=== PATIENT | female | born 1965 | race Hispanic/Latino ===

== ENCOUNTER → 2018-04-02 | Outpatient (CLI) | payer BC | LOC: MAMMO 11:30 | PROVIDERS: ATTEND Internal Medicine | DX: Z12.31 Encounter for screening mammogram for malignant neoplasm of breast (principal) | CPT/HCPCS: 77067 ==

== ENCOUNTER → 2018-04-22 | Outpatient (CLI) | payer BC ==
[2018-04-22 07:30] LABS: BASOPHILS % 0.4 % (0.0-1.0); EOSINOPHILS # (AUTO) 0.4 (0.0-0.4); EOSINOPHILS % 3.4 % (0.0-6.0); HEMATOCRIT 40.1 % (34.2-44.1); HEMOGLOBIN 13.6 g/dL (12.0-16.0); LYMPHOCYTES # (AUTO) 2.4 (1.0-3.2); LYMPHOCYTES % 22.7 % (18.0-39.1); MEAN CORPUSCULAR HEMOGLOBIN 30.2 pg (28-32); MEAN CORPUSCULAR HGB CONC 33.9 g/dL (31-35); MEAN CORPUSCULAR VOLUME 88.9 fL (81-99); MONOCYTES # (AUTO) 0.8 (0.2-0.8); MONOCYTES % 7.8 % (4.4-11.3); NEUTROPHILS # (AUTO) 6.8 (2.1-6.9); NEUTROPHILS % 65.4 % (38.7-80.0); PLATELET COUNT 326 x10e3/uL (140-360); RED BLOOD COUNT 4.51 x10e6/uL (3.6-5.1); RED CELL DISTRIBUTION WIDTH 12.4 % (11.7-14.4)
[2018-04-22 07:54] LABS: ALANINE AMINOTRANSFERASE 37 IU/L (0-55); ALBUMIN 3.7 g/dL (3.5-5.0); ALBUMIN/GLOBULIN RATIO 0.9 (0.8-2.0); ALKALINE PHOSPHATASE 108 IU/L (40-150); ANION GAP 12.8 mmol/L (8-16); BLOOD UREA NITROGEN 19 mg/dL (7-26); BUN/CREATININE RATIO 28 (6-25); CALCIUM 9.6 mg/dL (8.4-10.2); CARBON DIOXIDE 27 mmol/L (22-29); CHLORIDE 101 mmol/L (98-107); CHOL/HDL RATIO 4.2 (3.0-3.6); CHOLESTEROL 180 MD/DL (0-199); CREATININE, SERUM 0.67 mg/dL (0.57-1.11); EST GLOMERULAR FILTRATION RATE > 60 ML/MIN (60-); GLUCOSE 113 mg/dL (74-118); HDL CHOLESTEROL 43 MG/DL (40-60); LDL CHOLESTEROL 118 MG/DL (60-130); POTASSIUM 3.8 mmol/L (3.5-5.1); SODIUM 137 mmol/L (136-145); TRIGLYCERIDES 93 MG/DL (0-149)
[2018-04-22 08:15] LABS: FREE T4 (FREE THYROXINE) 1.08 ng/dL (0.9-1.8); THYROID STIMULATING HORMONE 0.804 uIU/mL (0.350-4.940)
== END ==
LOC: LAB 07:09
PROVIDERS: ATTEND Internal Medicine
DX: Z00.01 Encounter for general adult medical examination with abnormal findings (principal); Z13.1 Encounter for screening for diabetes mellitus; Z13.220 Encounter for screening for lipoid disorders; I10 Essential (primary) hypertension; M89.9 Disorder of bone, unspecified
CPT/HCPCS: 36415; 80053; 80061; 82652; 83036; 84439; 84443; 85025

== ENCOUNTER → 2018-09-24 | Outpatient (CLI) | payer BC ==
[2018-09-24 08:10] LABS: ALANINE AMINOTRANSFERASE 22 IU/L (0-55); ALBUMIN 3.5 g/dL (3.5-5.0); ALBUMIN/GLOBULIN RATIO 0.8 (0.8-2.0); ALKALINE PHOSPHATASE 104 IU/L (40-150); ANION GAP 12.7 mmol/L (8-16); BLOOD UREA NITROGEN 25 mg/dL (7-26); BUN/CREATININE RATIO 29 (6-25); CALCIUM 9.7 mg/dL (8.4-10.2); CARBON DIOXIDE 28 mmol/L (22-29); CHLORIDE 100 mmol/L (98-107); CHOL/HDL RATIO 3.5 (3.0-3.6); CHOLESTEROL 152 MD/DL (0-199); CREATININE, SERUM 0.86 mg/dL (0.57-1.11); EST GLOMERULAR FILTRATION RATE > 60 ML/MIN (60-); GLUCOSE 104 mg/dL (74-118); HDL CHOLESTEROL 43 MG/DL (40-60); LDL CHOLESTEROL 88 MG/DL (60-130); POTASSIUM 3.7 mmol/L (3.5-5.1); SODIUM 137 mmol/L (136-145); TRIGLYCERIDES 106 MG/DL (0-149)
== END ==
LOC: LAB 07:18
PROVIDERS: ATTEND Internal Medicine
DX: E11.9 Type 2 diabetes mellitus without complications (principal); I10 Essential (primary) hypertension; E66.01 Morbid (severe) obesity due to excess calories
CPT/HCPCS: 36415; 80053; 80061; 83036

== ENCOUNTER 2018-10-06 20:49 | Inpatient (IN) | payer BC ==
[~2018-10-06] VITALS: Ht 147.3 cm; Wt 87.1 kg
--- OUTSIDE RECORDS SUMMARY | 2018-10-06 20:51 | XMS REPORT ---
[facility] Address Unknown Phone Unavailable Care Team Providers Care Canopy Inspector Name Role Phone Amos HARRINGTON Unavailable Unavailable Problems This patient has no known problems. Allergies, Adverse Reactions, Alerts This patient has no known allergies or adverse reactions. Medications This patient has no known medications. Results Test Description Test Time Test Comments Text Results Atomic Results Result Comments MAMMOGRAPHY DIGITAL SCR BILAT 2018-04-02 12:34:00 [place] [address] Patient Name: YAMILETH ROA MR #: [id number] : 1965 Age/Sex: 53/F Req #: [id number] Adm Physician: Ordered by: KHANH HARRINGTON MD Report #: [id number] Location: MAMMO Room/Bed: Procedure: [id number] MG/MAMMOGRAPHY DIGITAL SCR BILAT Exam Date: 04/02/18 Exam Time: 1206 REPORT STATUS: Signed #[id number] - [id number] #BILATERAL DIGITAL SCREENING MAMMOGRAM WITH CAD: 04/02/2018 CLINICAL: Routine screening. Comparison is made to exams dated: 01/20/2015 mammogram, 10/19/2013 mammogram and 03/06/2012 mammogram - [facility]. Current study contains 4 films. There are scattered fibroglandular elements in both breasts. Current study was also evaluated with a Computer Aided Detection (CAD) system. There are benign vascular calcifications and calcifications in both breasts. There also are benign nodules in the right breast. Additionally there is a biopsy clip in the right breast. No significant masses, calcifications, or other findings are seen in either breast. There has been no significant interval change. IMPRESSION: BENIGN There is no mammographic evidence of malignancy. A 1 year screening mammogram is recommended. The patient will be notified by letter of the results. Amber thompson/saran:04/16/2018 15:49:37 Tipple Mechanic: Yadira VAZQUEZ)([place]), [facility] letter sent: Compared to Prior B9 Mammogram BI-RADS: 2 Benign Dictated By: AMBER FAGAN DO 1546 Transcribed By: SARAN on 04/16/18 [id number] COPY TO: KHANH HARRINGTON MD
[2018-10-06 21:49] LABS: BASOPHILS % 0.3 % (0.0-1.0); EOSINOPHILS # (AUTO) 0.1 (0.0-0.4); EOSINOPHILS % 0.6 % (0.0-6.0); HEMATOCRIT 34.1 % (34.2-44.1); HEMOGLOBIN 11.5 g/dL (12.0-16.0); LYMPHOCYTES # (AUTO) 0.8 (1.0-3.2); LYMPHOCYTES % 5.4 % (18.0-39.1); MEAN CORPUSCULAR HEMOGLOBIN 30.7 pg (28-32); MEAN CORPUSCULAR HGB CONC 33.7 g/dL (31-35); MEAN CORPUSCULAR VOLUME 90.9 fL (81-99); MONOCYTES # (AUTO) 0.8 (0.2-0.8); MONOCYTES % 5.5 % (4.4-11.3); NEUTROPHILS # (AUTO) 13.5 (2.1-6.9); NEUTROPHILS % 87.7 % (38.7-80.0); PLATELET COUNT 302 x10e3/uL (140-360); RED BLOOD COUNT 3.75 x10e6/uL (3.6-5.1); RED CELL DISTRIBUTION WIDTH 13.1 % (11.7-14.4)
[2018-10-06 21:52] LABS: CLARITY,URINE HAZY (CLEAR); COLOR,URINE YELLOW (YELLOW); KETONES,URINE TRACE (NEGATIVE); LEUKOCYTE ESTERASE ,URINE NEGATIVE (NEGATIVE); NITRITE,URINE NEGATIVE (NEGATIVE); PROTEIN,URINE DIPSTICK NEGATIVE (NEGATIVE)
[2018-10-06 21:53] LABS: AMORPHOUS SEDIMENT,URINE FEW (FEW); BACTERIA,URINE MODERATE /HPF; BILIRUBIN,URINE NEGATIVE (NEGATIVE); EPITHELIAL CELLS,URINE MODERATE /LPF; MUCUS,URINE FEW (RARE); RBC,URINE 0-5 /HPF (0-5); URINE UROBILINOGEN 0.2 mg/dL (0.2 - 1)
[2018-10-06 22:06] LABS: ALANINE AMINOTRANSFERASE 23 IU/L (0-55); ALBUMIN 3.6 g/dL (3.5-5.0); ALBUMIN/GLOBULIN RATIO 0.9 (0.8-2.0); ALKALINE PHOSPHATASE 96 IU/L (40-150); AMYLASE 47 U/L (25-125); ANION GAP 12.2 mmol/L (8-16); BLOOD UREA NITROGEN 18 mg/dL (7-26); BUN/CREATININE RATIO 23 (6-25); CALCIUM 9.6 mg/dL (8.4-10.2); CARBON DIOXIDE 26 mmol/L (22-29); CHLORIDE 100 mmol/L (98-107); CREATINE KINASE 83 IU/L (29-168); CREATININE, SERUM 0.79 mg/dL (0.57-1.11); EST GLOMERULAR FILTRATION RATE > 60 ML/MIN (60-); GLUCOSE 169 mg/dL (74-118); LIPASE 17 U/L (8-78); POTASSIUM 3.2 mmol/L (3.5-5.1); SODIUM 135 mmol/L (136-145)
--- NOTE | 2018-10-06 22:36 | Diagnostic Imaging Report ---
EXAMINATION: CHEST 2 VIEWS INDICATION: ^ABD PAIN ^[id number] ^2204 ^Y COMPARISON: None FINDINGS: PA and lateral views TUBES and LINES: None. LUNGS: Lungs are well inflated. There are calcified tracheobronchial tree. There is no evidence of pneumonia or pulmonary edema. PLEURA: No pleural effusion or pneumothorax. HEART AND MEDIASTINUM: The cardiomediastinal silhouette is unremarkable.. BONES AND SOFT TISSUES: Mild degenerative changes of the spine. No focal osseous lesions. Soft tissues are unremarkable. UPPER ABDOMEN: No free air under the diaphragm. IMPRESSION: No acute thoracic abnormality. Signed by: Dr. Selena Lujan MD on 10/06/2018 10:33 PM
--- NOTE | 2018-10-06 22:51 | Diagnostic Imaging Report ---
History:Syncope Comparison studies:None Technique: Axial images were obtained from the skull base to the vertex. Coronal and sagittal images reconstructed from the axial data. Intravenous contrast: None Dose modulation, iterative reconstruction, and/or weight based adjustment of the mA/kV was utilized to reduce the radiation dose to as low as reasonably achievable. Findings: Scalp/skull: No abnormalities. Extra-axial spaces: No masses. No fluid collections. Brain sulci: Mildly prominent. Ventricles: Mild compensatory dilatation. No hydrocephalus. Parenchyma: Scattered small hypodensities in the supratentorial white matter are small vessel ischemic changes. Cortical-based hypodensity at the left cuneus gyrus. No masses, hemorrhage, acute or chronic cortical vascular insults. Sellar/suprasellar region: No abnormalities. Craniocervical junction: Patent foramen magnum. No Chiari one malformation. Incidental findings: Atherosclerotic calcifications in the carotid siphons and vertebral arteries. Impression: No acute abnormalities. Chronic findings: 1. Mild generalized volume loss. 2. Mild supratentorial white matter small vessel ischemic changes. 3. Small focal gliosis at the left cuneus gyrus. Signed by: DR Gian Heath M.D. on 10/06/2018 10:48 PM
[2018-10-06] MEDS ORDERED: LISINOPRIL-HCT1 EACH PO (23:30)
[2018-10-06] MEDS ORDERED: LOSARTAN-HCTZ1 EACH PO (23:30)
[2018-10-06] MEDS ORDERED: METFORMIN HCL500 M1 PO (23:30)
[2018-10-06] MEDS ORDERED: AMLODIPINE BESY10 MG PO (23:30)
--- NOTE | 2018-10-06 23:42 | Diagnostic Imaging Report ---
CT Abdomen And Pelvis with Intravenous Contrast INDICATION: Abdominal pain nausea, vomiting, constipation, left-sided epigastric pain ^SYNCOPE EPISODE ^Y TECHNIQUE: Thin collimation axial images obtained from the diaphragm to the level of the pubic symphysis following the uneventful administration of 100 cc of low osmolar, nonionic intravenous contrast. Dose reduction techniques used: Automated exposure control, adjustment of the mAs and/or kVp according to patient size, standardized low-dose protocol, and/or iterative reconstruction technique. RADIATION DOSE: Total DLP: 788.5 mGy*cm Estimated effective dose: (DLP x 0.015 x size factor) mSv CTDIvol has been reviewed. It is below the limits set by the Radiation Protocol Committee (RPC). COMPARISON: None. ABDOMEN FINDINGS: Lung Bases: Clear. The visualized portions of the mediastinum are normal.. Liver: Normal attenuation. No evidence for mass. Gallbladder: Present and appears normal. No biliary ductal dilatation. Pancreas: Normal attenuation without mass or ductal dilatation. Spleen: Normal in size. No evidence of mass. Adrenal Glands: No evidence for mass. Kidneys: Right: Normal enhancement. No soft tissue mass. No hydronephrosis. Left: Normal enhancement. No soft tissue mass. A pixel sized calcification at the hilum of the upper pole is likely vascular. No hydronephrosis. Lymph Nodes: No enlarged abdominal or periaortic lymph nodes. There are calcified subcentimeter lymph nodes in the small bowel mesentery. No enlarged mesenteric lymph nodes. Aorta: Normal in diameter. The celiac artery and SMA are widely patent. SARAH is widely patent. PELVIS FINDINGS: Bowel: Stomach: Normal. Small Bowel: Normal in caliber with normal wall thickness. Large Bowel: There is circumferential mural thickening of the proximal ascending colon extending for approximately 6.3 cm in length without mucosal hyperemia or pericolonic inflammation. Remainder of the large bowel is collapsed. A few scattered diverticula are present without associated inflammation. Appendix: Normal appendix. Bladder: Normal. The uterus is present and normal in morphology. No adnexal mass. Peritoneum/retroperitoneum: No free fluid or fluid collection. Bones: Diffuse degenerative changes of the spine. No focal osseous lesions. IMPRESSION: Nonspecific circumferential mural thickening of the proximal ascending colon. No CT evidence of acute colitis. Recommend further characterization with colonoscopy. No evidence for bowel obstruction or inflammation. Normal appendix. Signed by: Dr. Selena Lujan MD on 10/06/2018 11:39 PM
[2018-10-07] MEDS ORDERED: KCL 20MEQ/.9 SOD CHL 1,000 ML IV ONE (00:15)
[2018-10-07] MEDS ORDERED: METRONIDAZOLE 500MG/NS 100ML 100 ML IV SCH ×2 (00:15→08:00)
[2018-10-07] MEDS ORDERED: DEXTROSE 50% SYRINGE 50 ML IV PRN (00:45)
[2018-10-07] MEDS: LEVOFLOXACIN 500MG/D5W 100ML IV SCH ×2 (00:45→23:33)
[2018-10-07] MEDS ORDERED: MORPHINE SULFATE INJ 4 MG/ML INJ 1ML ONE (00:50)
[2018-10-07] MEDS ORDERED: ONDANSETRON HCL INJ 2MG/ML 2ML 2 MG/ML VIAL ONE (00:50)
[2018-10-07] MEDS: ONDANSETRON HCL INJ 2MG/ML 2ML 2 MG/ML VIAL IV PRN ×2 (00:51→10:36)
[2018-10-07] MEDS: MORPHINE SULFATE INJ 4 MG/ML INJ 1ML IV PRN ×2 (01:03→10:36)
[2018-10-07] MEDS: INSULIN REGULAR, HUMAN 100 UNIT/1 ML 3ML VIAL SQ SCH ×4 (07:13→21:00)
--- NOTE | 2018-10-07 07:20 | NUR ---
Patient resting with no distress noted at this time.
--- NOTE | 2018-10-07 09:22 | NUR ---
Patient resting with no distress noted at this time. Will continue to monitor patient.
[2018-10-07] MEDS: METRONIDAZOLE 500MG/NS 100ML 100 ML IV SCH ×2 (13:48→20:00)
--- NOTE | 2018-10-07 14:12 | NUR ---
Patient continues to rest with no distress noted. Will continue to monitor patient.
[2018-10-07 16:38] VITALS: BP 136/80
[2018-10-07 16:50] VITALS: BP 136/80
[2018-10-07] MEDS ORDERED: POTASSIUM CHLORIDE 20 MEQ TAB CR PO NR ×2 (18:32→19:45)
[2018-10-07] MEDS ORDERED: BISACODYL 5 MG TAB EC PO NR ×4 (18:45→20:15)
--- NOTE | 2018-10-07 19:11 | NUR ---
PATIENT IN STABLE CONDITION WITH NO S/S OF RESPIRATORY DISTRESS. NO PAIN VOICED. FAMILY MEMBERS PRESENT IN ROOM. FIRST DOSE OF DULCOLAX AND POTASSIUM GIVEN TO THE PATIENT. CALL LIGHT IS WITHIN REACH, PATIENT INSTRUCTED TO CALL FOR ASSISTANCE NEEDED. BEDSIDE REPORT GIVEN TO ONCOMING NURSE.
--- NOTE | 2018-10-07 19:20 | History and Physical ---
HISTORY OF PRESENT ILLNESS: Ms. Chaney is a 53-year-old female with history of hypertension, came to the emergency room because one week prior to admission she started having left lower abdominal pain, constipation, and she also saw some blood in the stools. She went home from work, she was not feeling good. She had chills and she says she fainted on the bed, she was unconscious for like 10 minutes, so she decided to come to the emergency room. PAST MEDICAL HISTORY: She says she has hypertension. ALLERGIES: NO KNOWN DRUG ALLERGIES. PAST SURGICAL HISTORY: She had a . SOCIAL HISTORY: She does not smoke and she does not drink. She lives at home with her . PHYSICAL EXAMINATION: GENERAL: Today, she is awake and alert. VITAL SIGNS: Temperature is 98.5, blood pressure 123/68. HEART: Regular rate. LUNGS: Clear to auscultation. ABDOMEN: Distended and soft. LABS: White count is 15.40, hemoglobin 11.5, hematocrit 34.1. Potassium 3.2, creatinine 0.79, glucose 169. Abdomen and pelvic CT show thickening of the proximal ascending colon. Head CT, no acute abnormalities. Chest x-ray, no acute findings. ASSESSMENT AND PLAN: Left side abdominal pain, constipation, rectal bleeding, syncopal episode, history of hypertension, leukocytosis. PLAN: The plan at present time is to get a GI consult, Infectious Disease consult. She is on IV Levaquin and metronidazole. She is also on insulin protocol, so apparently the patient has diabetes. We are going to get a cardiology consult for the evaluation of syncope. All this was discussed with the patient and at bedside. All questions were answered to satisfaction. MD CICI Beyer/MODL /[id number]
[2018-10-07 19:23] VITALS: BP 136/80
--- NOTE | 2018-10-07 19:23 | NUR ---
PT IS RESTING IN BED WITH FAMILY AT BEDSIDE. RESPIRATION IS EVEN AND UNLABORED, NO DISTRESS NOTED. BED IN THE LOWEST POSITION, LOCKED, AND CALL LIGHT WITHIN REACH. WILL CONTINUE TO MONITOR.
--- NOTE | 2018-10-07 19:25 | Consultation ---
DATE OF CONSULTATION: 10/07/2018 REASON FOR CONSULTATION: Fever and chills. HISTORY OF PRESENT ILLNESS: This patient is a very pleasant 53-year-old [place] female. The patient comes in with an episode of fever, chills, abdominal pain mainly in the left upper quadrant, had an episode of diarrhea. The patient comes in. She is feeling better now, but she is still having abdominal pain. She states she was healthy prior to this. PAST MEDICAL HISTORY: Otherwise she denies. PAST SURGICAL HISTORY: She denies. ALLERGIES: NKA. SOCIAL HISTORY: There is no smoking, drug abuse, or alcohol abuse. FAMILY HISTORY: Otherwise unremarkable. REVIEW OF SYSTEMS: HEENT: Negative. PULMONARY: Negative. CARDIAC: Negative. : Negative. GI: As above. Review of systems at present time is negative. When she first came, she was alert and oriented. There is no fever. PHYSICAL EXAMINATION: GENERAL: She is currently alert, oriented, does not seem to be in acute distress. VITAL SIGNS: Stable. Afebrile. HEENT: She is not icteric. NECK: Supple. CHEST: Clear. HEART: S1, S2. No S3, S4, or murmur. ABDOMEN: Soft. Bowel sounds present. No tenderness. No hepatosplenomegaly. EXTREMITIES: No edema. SKIN: There is no rash. IMPRESSION: Abdominal pain, diarrhea, fever, chills, concerned about colitis. The CT scan did not reveal evidence of colitis. The patient continued to have abdominal pain. I will suggest to obtain GI evaluation and do colonoscopy. I agree with blood cultures, agree with Levaquin and Flagyl. In the meantime, we will check CBC, we will check chemistry panel. We will follow with you. MD MARCO Yang/KEYUR /[id number]
[2018-10-07] MEDS ORDERED: SODIUM CHLORIDE 0.9% 250ML 250 ML ONE (19:54)
[2018-10-07 20:00] VITALS: BP 149/76
[2018-10-07] MEDS ORDERED: CITRATE OF MAGNESIA 300ML BOTTLE PO NR ×2 (21:00→23:00)
--- NOTE | 2018-10-07 22:24 | NUR ---
Cardiology Consult Dictation# [id number]
--- NOTE | 2018-10-07 23:20 | Consultation ---
DATE OF CONSULTATION: 10/07/2018 Cardiology consultation. REQUESTING PHYSICIAN: Dr. Noonan. REASON FOR CONSULTATION: Syncope. HISTORY OF PRESENT ILLNESS: This is a 53-year-old woman with history of hypertension, who presents with complaints of abdominal pain, nausea, and vomiting. The patient reports this has been ongoing since this past weekend with progressive worsening of note, during this time. She has been having episodes of lightheadedness when she first gets up with an episode of syncope for which she presented to the ER. She otherwise denies chest pain, shortness of breath, palpitations, orthopnea, PND, or edema. REVIEW OF SYSTEMS: Negative as per HPI. PAST MEDICAL HISTORY: Hypertension. PAST SURGICAL HISTORY: section. ALLERGIES: NO KNOWN DRUG ALLERGIES. MEDICATIONS: Please see EMR. SOCIAL HISTORY: Denies tobacco, alcohol, or illicit drugs. FAMILY HISTORY: Denies. PHYSICAL EXAMINATION: VITAL SIGNS: Temperature 98.2 degrees, pulse 72, respiratory rate 18, blood pressure 136/80, oxygen saturation 98% on room air. GENERAL: Well-developed, well-nourished woman, in no acute distress. HEENT: Normocephalic, atraumatic. Pupils equal. No scleral icterus. NECK: Supple. No thyroid or cervical lymphadenopathy. No carotid bruits. LUNGS: Clear to auscultation bilaterally. No wheezes or crackles. CARDIOVASCULAR: Normal rate, regular rhythm. No murmur. Normal S1, S2. ABDOMEN: Soft and nontender. EXTREMITIES: No edema. LABORATORY DATA: WBC 16.4, hemoglobin 11.5, hematocrit 34.1, and platelets 302. Sodium 135, potassium 3.2, chloride 100, CO2 of 26, BUN 18, and creatinine 0.79. Troponin less than 0.001. CT abdomen and pelvis, nonspecific circumferential mural thickening of the proximal ascending colon. No CT evidence of acute colitis. Chest x-ray no acute thoracic abnormality. EKG, normal sinus rhythm, cannot rule out anterior infarct, age undetermined. IMPRESSION: 1. Syncope. 2. Abdominal pain. 3. Hypertension. RECOMMENDATIONS: Monitor the patient on telemetry for arrhythmic check, orthostatic vitals. We will obtain echocardiogram and carotid Dopplers. Further recommendations pending test results. Evaluation of abdominal pain per GI. Thank you for this consult. We will continue to follow. MD TREE Hinds/KEYUR /[id number]
[2018-10-08] VITALS: BP 170/76
[2018-10-08] MEDS: METRONIDAZOLE 500MG/NS 100ML 100 ML IV SCH ×4 (03:12→20:20)
[2018-10-08 04:00] VITALS: BP 140/63
[2018-10-08 06:39] LABS: BASOPHILS % 0.4 % (0.0-1.0); EOSINOPHILS # (AUTO) 0.4 (0.0-0.4); EOSINOPHILS % 4.5 % (0.0-6.0); HEMATOCRIT 34.5 % (34.2-44.1); HEMOGLOBIN 11.3 g/dL (12.0-16.0); LYMPHOCYTES # (AUTO) 1.7 (1.0-3.2); LYMPHOCYTES % 18.7 % (18.0-39.1); MEAN CORPUSCULAR HEMOGLOBIN 29.8 pg (28-32); MEAN CORPUSCULAR HGB CONC 32.8 g/dL (31-35); MONOCYTES # (AUTO) 0.8 (0.2-0.8); MONOCYTES % 8.5 % (4.4-11.3); NEUTROPHILS # (AUTO) 6.3 (2.1-6.9); NEUTROPHILS % 67.5 % (38.7-80.0); PLATELET COUNT 297 x10e3/uL (140-360); RED BLOOD COUNT 3.79 x10e6/uL (3.6-5.1); RED CELL DISTRIBUTION WIDTH 13.2 % (11.7-14.4)
[2018-10-08 07:00] LABS: ALANINE AMINOTRANSFERASE 33 IU/L (0-55); ALBUMIN 3.4 g/dL (3.5-5.0); ALBUMIN/GLOBULIN RATIO 0.8 (0.8-2.0); ALKALINE PHOSPHATASE 91 IU/L (40-150); ANION GAP 11.7 mmol/L (8-16); BLOOD UREA NITROGEN 11 mg/dL (7-26); BUN/CREATININE RATIO 16 (6-25); CALCIUM 9.5 mg/dL (8.4-10.2); CARBON DIOXIDE 24 mmol/L (22-29); CHLORIDE 108 mmol/L (98-107); CREATININE, SERUM 0.69 mg/dL (0.57-1.11); EST GLOMERULAR FILTRATION RATE > 60 ML/MIN (60-); GLUCOSE 95 mg/dL (74-118); POTASSIUM 4.7 mmol/L (3.5-5.1); SODIUM 139 mmol/L (136-145)
[2018-10-08] MEDS: INSULIN REGULAR, HUMAN 100 UNIT/1 ML 3ML VIAL SQ SCH ×4 (07:30→20:06)
[2018-10-08 07:56] VITALS: BP 126/60
[2018-10-08 08:00] VITALS: BP 126/60
[2018-10-08 11:56] VITALS: BP 151/67
--- NOTE | 2018-10-08 12:08 | Progress Note ---
DATE: 10/08/2018 SUBJECTIVE: Ms. Chaney is a 53-year-old female with a history of hypertension, came to the emergency room complaining of low abdominal pain, constipation, and blood in the stool. She states that when she had abdominal pain, she fainted on the bed and she was unconscious for like 10 minutes. That is why, a Cardiology consult was requested for her. OBJECTIVE: GENERAL: Today, she is awake and alert. She is feeling better. VITAL SIGNS: Temperature is 98.4, blood pressure 126/60, heart is regular rate. LUNGS: Clear to auscultation. ABDOMEN: Soft. LABORATORY DATA: On the blood work potassium 4.7, creatinine 0.69, glucose is 95. White count 9.32, hemoglobin 11.3, hematocrit 34.5. Abdomen and pelvic CT shows thickening of the proximal ascending colon. ASSESSMENT: 1. Left-sided abdominal pain. 2. Constipation. 3. Rectal bleeding. 4. Syncopal episode. 5. Hypertension. 6. Leukocytosis, resolved. PLAN: At the present time, this patient is going to go for a colonoscopy. She was seen already by a GI that ordered echocardiogram and carotid Doppler. The workup is negative, the patient may go home later today or in the morning. All this was discussed with the patient and questions were answered to satisfaction. MD CICI Beyer/KEYUR /[id number]
[2018-10-08] MEDS ORDERED: FENTANYL CITRATE/PF 100MCG/2 ML INJ ONE (14:36)
[2018-10-08] MEDS ORDERED: MIDAZOLAM HCL 5 MG/ML VIAL ONE (14:36)
[2018-10-08 16:42] LABS: WBC,FECAL (FECAL LACTOFERRIN) NEGATIVE (NEGATIVE)
--- NOTE | 2018-10-08 17:55 | Operative Report ---
DATE OF PROCEDURE: 10/08/2018 SURGEON: Alexander Wu MD PROCEDURE: Colonoscopy with biopsies. ADDITIONAL REFERRING PHYSICIAN: Dr. Noel. INDICATIONS FOR COLONOSCOPY: Lower abdominal pain, abnormal CT scan. MEDICATIONS: The patient was done under MAC, please see anesthesiologist's note. PROCEDURE IN DETAIL: With the patient in left lateral decubitus position, flexible fiberoptic Olympus colonoscope was inserted into the rectum with ease and advanced all the way to the cecum. Mucosa overlying the cecum appeared to be within normal limits. The ileocecal valve was intubated and the scope was advanced into the terminal ileum. Biopsies were obtained. The scope was then withdrawn back into the colon. It was then withdrawn slowly and the proximal 1/3rd of the ascending colon was ulcerated and biopsies were obtained. The rest of the ascending, transverse, descending, sigmoid, and rectum grossly were unremarkable. The scope was then retroflexed into the distal rectum. Small internal hemorrhoids were noted, none of which was actively bleeding. The scope was then straightened out, it was subsequently withdrawn. The patient tolerated the procedure well. IMPRESSION: 1. Ulcerated proximal ascending colon. Biopsies obtained. 2. Internal hemorrhoids, none actively bleeding. PLAN: Follow up histology. Follow up stool studies. Initiate GI soft diet. Alexander Wu MD [facility]/MODL /[id number] cc: MD Marcelino Beyer MD
--- NOTE | 2018-10-08 18:15 | Progress Note ---
DATE: 10/08/2018 Cardiology Progress Note SUBJECTIVE: The patient denies chest pain or shortness of breath. OBJECTIVE: VITAL SIGNS: Temperature 97.8 degrees, pulse 75, respiratory rate 16, blood pressure 151/67, oxygen saturation 97% on room air. GENERAL: Awake, alert, in no acute distress. LUNGS: Clear to auscultation bilaterally. No wheezes or crackles. CARDIOVASCULAR: Normal rate, regular rhythm. No murmur. Normal S1, S2. ABDOMEN: Soft, nontender. EXTREMITIES: No edema. CARDIAC MEDICATIONS: None. LABORATORY DATA: WBC 9.32, hemoglobin 11.3, hematocrit 34.5, platelets 297. Sodium 139, potassium 4.7, chloride 108, CO2 of 24, BUN 11, creatinine 0.69. TELEMETRY: Normal sinus rhythm. IMPRESSION: 1. Near-syncope. 2. Abdominal pain. 3. Hypertension. RECOMMENDATIONS: No evidence of arrhythmias has been noted on telemetry. Continue to monitor. Check orthostatic vitals. Echocardiogram without cardiac etiologies of arrhythmia. Recommend outpatient telemetry monitoring for further evaluation. Thank you for this consult. We will continue to follow. Florecita Cueva MD [facility]/MODL /[id number]
--- NOTE | 2018-10-08 19:31 | NUR ---
RECEIVED PT IN BED AOX3 .RESPIRATIONS ARE EVEN AND UNLABORED.DENIES PAIN CALL LIGHT WITH IN REACH .CONTINUE TO MONITOR
[2018-10-08] MEDS ORDERED: PROPOFOL IV EMULSION 10 MG/ML 50 ML VIAL ONE (19:58)
[2018-10-08 20:00] VITALS: BP 153/67
[2018-10-09] VITALS: BP 149/67
[2018-10-09] MEDS: LEVOFLOXACIN 500MG/D5W 100ML IV SCH (00:15)
[2018-10-09] MEDS: METRONIDAZOLE 500MG/NS 100ML 100 ML IV SCH ×2 (02:00→08:27)
[2018-10-09 02:02] VITALS: BP 149/67
[2018-10-09 04:00] VITALS: BP 122/57
--- NOTE | 2018-10-09 06:14 | NUR ---
PT RESTING /IV SITE SWOLLEN AND PUT NEW IV RT UPPER ARM .DENIES PAIN AT THIS TIME .CALL LIGHT WITH IN REACH
--- NOTE | 2018-10-09 07:04 | NUR ---
REPORT GIVEN TO THE ON COMING NURSE
--- NOTE | 2018-10-09 07:04 | NUR ---
REPORT GIVEN TO THE ON COMING NURSE .
[2018-10-09] MEDS: INSULIN REGULAR, HUMAN 100 UNIT/1 ML 3ML VIAL SQ SCH (07:30)
[2018-10-09 07:54] VITALS: BP 145/78
[2018-10-09 08:10] VITALS: BP 145/78
[2018-10-09 11:23] LABS: C DIFFICILE TOXIN A&B AMP PROB NEGATIVE (NEGATIVE)
--- NOTE | 2018-10-09 13:50 | Progress Note ---
DATE: 10/09/2018 Cardiology Progress Note SUBJECTIVE: The patient denies chest pain or shortness of breath. OBJECTIVE: VITAL SIGNS: Temperature 97.2 degrees, pulse 68, respiratory rate 18, blood pressure 145/70, oxygen 100% on room air. GENERAL: Awake, alert, in no acute distress. LUNGS: Clear to auscultation bilaterally. No wheezes or crackles. CARDIOVASCULAR: Normal rate, regular rhythm. No murmur. Normal S1, S2. ABDOMEN: Soft, nontender. EXTREMITIES: No edema. CARDIAC MEDICATIONS: None. LABORATORY DATA: None today. TELEMETRY: Normal sinus rhythm. IMPRESSION: 1. Near-syncope. 2. Abdominal pain. 3. Hypertension. RECOMMENDATIONS: No evidence of arrhythmias have been noted on telemetry. Continue to monitor. Check orthostatic vitals. Echocardiogram was without cardiac etiology or arrhythmia. Recommend outpatient telemetry monitoring for further evaluation. Thank you for this consult. We will continue to follow. Florecita Cueva MD [facility]/MODL /[id number]
[2018-10-09] MEDS ORDERED: LEVAQUIN500 MG PO (14:23)
[2018-10-09] MEDS ORDERED: FLAGYL500 MG PO (14:24)
--- NOTE | 2018-10-10 04:39 | Discharge Summary ---
HOSPITAL COURSE: Ms. Chaney is a 53-year-old female with history of hypertension, came to the emergency room with abdominal pain, constipation, blood in the stools. She had a colonoscopy done yesterday that showed an ulcerated lesion in the ascending right colon and hemorrhoids. At present time, the patient is doing fine. She is eating. No recurrent bleeding. She was seen by Cardiology for possible syncopal episodes and she needs to follow up as an outpatient. PHYSICAL EXAMINATION: GENERAL: She is awake and alert. VITAL SIGNS: Temperature is 97.2, blood pressure 145/78. She wants to go home. HEART: Regular rate. LUNGS: Clear to auscultation. ABDOMEN: Soft. LABORATORY DATA: On the blood work, potassium 4.7, creatinine 0.69, glucose 95. White count 9.32, hemoglobin 11.3, hematocrit 34.5. Like I say she had a colonoscopy done that shows an ulcer in the proximal ascending colon. Biopsies were taken. She also has hemorrhoids. ASSESSMENT AND PLAN: On this patient, 1. Left-sided abdominal pain. 2. Constipation. 3. Rectal bleeding. 4. Syncopal episode. 5. Hypertension. 6. Leukocytosis, resolved. PLAN: At the present time, the patient is seen already by career services manager, who desired echocardiogram. If a workup here is negative, she needs follow up with them as an outpatient for probably Holter monitoring and she also had a colonoscopy. She is going to need follow up with Dr. Alexander Wu for the biopsy results of her colonic ulcer and we are going to continue Flagyl 500 mg p.o. q.8 hours for seven days and Levaquin 500 mg p.o. daily for seven more days. She needs to follow up with her PCP in one week. She is to call me or come back to the emergency room if any recurrent problem. All this was discussed with the patient. All questions were answered to satisfaction. If she is cleared by all the other consultants, the patient will go home today. MD CICI Beyer/KEYUR /[id number]
== END 2018-10-09 14:44 | disposition home or self-care (01) | DRG 378 ==
LOC: ER 20:49 → ERHOLD 10-07 00:40 → MED/SURG3 10-07 15:36
PROVIDERS: ADMIT Internal Medicine; ATTEND Internal Medicine
PROC: 0DBB8ZX Excision of Ileum, Via Natural or Artificial Opening Endoscopic, Diagnostic (ICD-10-PCS; 2018-10-08)
PROC: 0DBK8ZX Excision of Ascending Colon, Via Natural or Artificial Opening Endoscopic, Diagnostic (ICD-10-PCS; principal; 2018-10-08 15:33)
DX: K92.2 Gastrointestinal hemorrhage, unspecified (principal); K63.3 Ulcer of intestine; Z68.41 Body mass index [BMI] 40.0-44.9, adult; K59.00 Constipation, unspecified; I10 Essential (primary) hypertension; E66.9 Obesity, unspecified; E11.9 Type 2 diabetes mellitus without complications
CPT/HCPCS: 36415; 45380; 70450; 71046; 74177; 80053; 81001; 82150; 82550; 82553; 82948; 83630; 83690; 83993; 84132; 84484; 85025; 87045; 87177; 87328; 87493; 88305; 93005; 93306; 93880; 99284; J1956; J2250; J2270; J2405; J7050

== ENCOUNTER 2019-11-13 07:11 | Emergency (ER) | payer BC ==
[~2019-11-13] VITALS: Ht 147.3 cm; Wt 87.1 kg
[~2019-11-13 07:11] MED LIST: AMLODIPINE BESY10 MG PO; FLAGYL500 MG PO; LEVAQUIN500 MG PO; LISINOPRIL-HCT1 EACH PO; LOSARTAN-HCTZ1 EACH PO; METFORMIN HCL500 M1 PO
--- OUTSIDE RECORDS SUMMARY | 2019-11-13 07:14 | XMS REPORT ---
Author Author [facility] t Organization [facility] Address [address] [place] [address] Phone Unavailable Care Team Providers Care Customer Support Specialist Name Role Phone Amos HARRINGTON MD PCP PIOTR CAMPUZANO Attphys Unavailable Gulshan VILLEGAS Attphys Unavailable Amos HARRINGTON Attphys Unavailable Payers Payer Name Policy Type Policy Number Effective Date Expiration Date S [place] [employer] [place] Ppo [id number] [facility] Problems Condition Name Condition Details Condition Category Status Onset Date Resolution Date Last Treatment Date Treating Clinician Comments Source Colitis Colitis Problem Active [facility] Diarrhea Diarrhea Problem Active [facility] Vomiting Vomiting Problem Active [facility] Allergies, Adverse Reactions, Alerts This patient has no known allergies or adverse reactions. Medications Ordered Medication Name Filled Medication Name Start Date Stop Da te Current Medication? Ordering Clinician Indication Dosage Frequency Signature (SIG) Comments Components Source Amlodipine Besylate 10 Mg Tablet Amlodipine Besylate 10 Mg Tablet Yes 10 Daily [facility] Levofloxacin (Levaquin) 500 Mg Tablet Levofloxacin (Levaquin) 500 M g Tablet Yes 500 Daily [facility] Losartan/Hydrochlorothiazide (Losartan-Hctz 50-12.5 Mg Tab) 1 Each Tablet Losartan/Hydrochlorothiazide (Losartan-Hctz 50-12.5 Mg Tab) 1 Each Tablet Yes 1 Daily [facility] Metformin Hcl (Metformin Hcl Er) 500 Mg Tab.er.24h Met formin Hcl (Metformin Hcl Er) 500 Mg Tab.er.24h Yes 1 Daily [facility] Metronidazole (Flagyl) 500 Mg Tablet Metronidazole (Flagyl) 500 Mg Tablet Yes Every 8 Hours [facility] Lisinopril/Hydrochlorothiazide (Lisinopr il-Hctz 20-12.5 Mg Tab) 1 Each Tablet, 1 Tab Oral Lisinopril/Hydrochlorothiazide (Lisinopr il-Hctz 20-12.5 Mg Tab) 1 Each Tablet, 1 Tab Oral 2018-10-07 00:00:00 No 1 Daily [facility] Procedures Procedure Date / Time Performed Performing Clinician [facility] e EGD with biopsy 2018-10-18 00:00:00 IRWIN, [facility] Colonoscopy with biopsy 2018-10-08 00:00:00 JAVAD IRWIN [facility] Computed tomography of brain without radiopaque contrast 201 02-25-15 00:00:00 VILLEGASJEM [facility] Computed tomography of abdomen and pelvis with contrast 2018 00:00:00 JEM VILLEGAS [facility] X-ray of chest, two views 2018-10-06 00:00:00 DONALD VILLEGAS [facility] Encounters Start Date/Time End Date/Time Encounter Type Admission Type [facility] Care Department Encounter ID Source 2018-10-07 00:40:00 2018-10-09 14:44:00 Discharged Inpatient 1 JEM VILLEGAS [facility] [id number] [facility] 2018-09-24 07:18:00 2018-09-24 07:18:00 Registered Clinic [facility] [id number] [facility] 2018-04-22 07:09:00 2018-04-22 07:09:00 Registered Clinic [facility] [id number] [facility] 2018-04-02 11:30:00 2018-04-02 11:30:00 Registered Clinic 3 KHANH HARRINGTON [facility] [id number] [facility] Results Test Description Test Time Test Comments Results Result Comments Source MAMMOGRAPHY DIGITAL SCR BILAT 2019-04-10 14:46:00 [facility] [address] [place] [address] Patient Name: YAMILETH ROA MR #: [id number] : 1965 Age/Sex: 54/F Req #: [id number] Adm Physician: Ordered by: PIOTR CAMPUZANO MD Report #: [id number] Location: MAMMO Room/Bed: Procedure: [id number] MG/MAMMOGRAPHY DIGITAL SCR BILAT Exam Date: 04/10/19 Exam Time: 1336 REPORT STATUS: Signed #[id number] - MGSCRBIL #BILATERAL DIGITAL SCREENING MAMMOGRAM WITH CAD: 04/10/2019 CLINICAL: Routine screening. Comparison is made to exams dated: 04/02/2018 mammogram - [facility] and 01/20/2015 mammogram - [facility]. Current study contains 4 films. There are scattered fibroglandular elements in both breasts. Current study was also evaluated with a Computer Aided Detection (CAD) system. There are benign and vascular calcifications in both breasts. There also are stable benign nodules in the right breast. Additionally there is a biopsy clip in the right breast. No significant masses, calcifications, or other findings are seen in either breast. IMPRESSION: BENIGN There is no mammographic evidence of malignancy. A 1 year screening mammogram is recommended. The patient will be notified by letter of the results. HENRY gonzalez/saran:04/15/2019 15:56:15 [employer]: Yadira VAZQUEZ)(M), [facility] letter sent: Normal Exam Mammogram BI-RADS: 2 Benign Dictated By: HENRY CHAU MD 55 Transcribed By: SARAN on 04/15/191555 COPY TO: PIOTR CAMPUZANO MD Bedside Glucose 2018-10-09 12:00:00 Test Item Bedside Glucose (test code = 45403-1) 101 70-120 Meter ID: [id number] [facility]ty Hospitals of AmericaClostridium Difficile Toxin A & I7898-73-06 11:23:00* Test Item Value Reference Range Interpretation Comments Clostridium Difficile Toxin A & B (test code = 188594303) NEGATIVE NEGATIVE Testing on stool aspirate specimens is outside raised printer claims since specime n type not validated on this assay.[facility] Lactoferrin (LAB)2018-10-08 16:42:00* Test Item Value Reference Range Interpretation Comments Stool Lactoferrin (LAB) (test code = 25802-1) NEGATIVE NEGATIVE Testing on stool aspirate specimens is outside raised printer claims since specime n type not validated on this assay.[facility] Psdqu5289-83-06 07:05:00* Test Item Value Reference Range Interpretation Comments Sodium Level (test code = 2951-2) 139 136-145 [facility] AmericaPotassium Cqomi0820-42-63 07:05:00* Test Item Value Reference Range Interpretation Comments Potassium Level (test code = 2823-3) 4.7 3.5-5.1 [facility] AmericaChloride Nkxvo5874-03-08 07:05:00* Test Item Value Reference Range Interpretation Comments Chloride Level (test code = 2075-0) 108 98-107 [facility] of AmericaCarbon Dioxide Ewouj4811-25-53 07:05:00* Test Item Value Reference Range Interpretation Comments Carbon Dioxide Level (test code = 2028-9) 24 22-29 [facility] AmericaAnion Tip7702-92-77 07:05:00* Test Item Value Reference Range Interpretation Comments Anion Gap (test code = 76270-8) 11.7 8-16 [facility] AmericaBlood Urea Zwcxgffx8878-29-82 07:05:00* Test Item Value Reference Range Interpretation Comments Blood Urea Nitrogen (test code = 3094-0) 11 7-26 [facility] AmericaCreatinine2019-04-17 07:05:00* Test Item Value Reference Range Interpretation Comments Creatinine (test code = 2160-0) 0.69 0.57-1.11 [facility]als of AmericaBUN/Creatinine Yeifj7147-50-28 07:05:00* Test Item Value Reference Range Interpretation Comments BUN/Creatinine Ratio (test code = 3097-3) 16 6-25 [facility]als of AmericaEstimat Glomerular Filtration Rate 2018-10-08 07:05:00* Test Item Value Reference Range Interpretation Comments Estimat Glomerular Filtration Rate (test code = 196396512) > 60 >60 Ranges were taken from the National Kidney Disease Education Program and the [facility] [employer] literature.Reference ranges:60 or greater: Wzojai32-00 ( for 3 consecutive months): Chronic kidney disease 15 or less: Kidney failureSurgery Specialty Hospitals of AmericaGlucose Djvqr4331-75-22 07:05:00* Test Item Value Reference Range Interpretation Comments Glucose Level (test code = SRQ0005) 95 74-118 [facility] of AmericaCalcium Bvpfd9397-50-92 07:05:00* Test Item Value Reference Range Interpretation Comments Calcium Level (test code = 71169-9) 9.5 8.4-10.2 [facility]als of AmericaTotal Vjkbrprtq8263-08-29 07:05:00* Test Item Value Reference Range Interpretation Comments Total Bilirubin (test code = 1975-2) 0.4 0.2-1.2 [facility] Hospitals of AmericaAspartate Amino Transf (AST/SGOT) 2018-10-08 07:05:00* Test Item Value Reference Range Interpretation Comments Aspartate Amino Transf (AST/SGOT) (test code = Aspartate Amino Transf (AST/SGOT)) 35 5-34 [facility] Hospitals of AmericaAlanine Aminotransferase (ALT/SGPT) 2018-10-08 07:05:00* Test Item Value Reference Range Interpretation Comments Alanine Aminotransferase (ALT/SGPT) (test code = 1742-6) 33 0-55 [facility]als of AmericaTotal Tiwcoul5292-53-23 07:05:00* Test Item Value Reference Range Interpretation Comments Total Protein (test code = 2885-2) 7.5 6.5-8.1 [facility] of AmericaAlbumin2019-04-17 07:05:00* Test Item Value Reference Range Interpretation Comments Albumin (test code = 1751-7) 3.4 3.5-5.0 [facility] of AmericaGlobulin2019-04-17 07:05:00* Test Item Value Reference Range Interpretation Comments Globulin (test code = 06333-7) 4.1 2.3-3.5 [facility]als of AmericaAlbumin/Globulin Jcupd2011-11-26 07:05:00 * Test Item Value Reference Range Interpretation Comments Albumin/Globulin Ratio (test code = 1759-0) 0.8 0.8-2.0 [facility] Hospitals of AmericaAlkaline Ycfwizamwxj7727-01-71 07:05:00* Test Item Value Reference Range Interpretation Comments Alkaline Phosphatase (test code = 6768-6) 91 40-150 [facility]als of AmericaWhite Blood Clwgl6839-18-98 07:04:00* Test Item Value Reference Range Interpretation Comments White Blood Count (test code = 6690-2) 9.32 4.8-10.8 [facility]als of AmericaRed Blood Euydh9229-03-90 07:04:00* Test Item Value Reference Range Interpretation Comments Red Blood Count (test code = 789-8) 3.79 3.6-5.1 [facility] of AmericaHemoglobin2019-04-17 07:04:00* Test Item Value Reference Range Interpretation Comments Hemoglobin (test code = 93663-9) 11.3 12.0-16.0 [facility]als of AmericaHematocrit2019-04-17 07:04:00* Test Item Value Reference Range Interpretation Comments Hematocrit (test code = 4544-3) 34.5 34.2-44.1 [facility] Hospitals of AmericaMean Corpuscular Fqxmvm4911-45-78 07:04:00* Test Item Value Reference Range Interpretation Comments Mean Corpuscular Volume (test code = 787-2) 91.0 81-99 [facility]als of AmericaMean Corpuscular Exhmtctvwy4073-03-32 07:04:00* Test Item Value Reference Range Interpretation Comments Mean Corpuscular Hemoglobin (test code = 785-6) 29.8 28-32 [facility] Hospitals of AmericaMean Corpuscular Hemoglobin Concent 2018-10-08 07:04:00* Test Item Value Reference Range Interpretation Comments Mean Corpuscular Hemoglobin Concent (test code = 786-4) 32.8 31-35 [facility] Hospitals of AmericaRed Cell Distribution Sqjhf3272-81-74 07:04:00* Test Item Value Reference Range Interpretation Comments Red Cell Distribution Width (test code = 49828-1) 13.2 11.7 -14.4 [facility]als of AmericaPlatelet Ksygu3727-24-66 07:04:00* Test Item Value Reference Range Interpretation Comments Platelet Count (test code = 777-3) 297 140-360 [facility] of AmericaNeutrophils (%) (Auto)2018-10-08 07:04:00 * Test Item Value Reference Range Interpretation Comments Neutrophils (%) (Auto) (test code = 79219-7) 67.5 38.7-80.0 [facility] Hospitals of AmericaLymphocytes (%) (Auto)2018-10-08 07:04:00 * Test Item Value Reference Range Interpretation Comments Lymphocytes (%) (Auto) (test code = 736-9) 18.7 18.0-39.1 [facility]als of AmericaMonocytes (%) (Auto)2018-10-08 07:04:00* Test Item Value Reference Range Interpretation Comments Monocytes (%) (Auto) (test code = 5905-5) 8.5 4.4-11.3 [facility] AmericaEosinophils (%) (Auto)2018-10-08 07:04:00 * Test Item Value Reference Range Interpretation Comments Eosinophils (%) (Auto) (test code = 713-8) 4.5 0.0-6.0 [facility] of AmericaBasophils (%) (Auto)2018-10-08 07:04:00* Test Item Value Reference Range Interpretation Comments Basophils (%) (Auto) (test code = 706-2) 0.4 0.0-1.0 [facility] Hospitals of AmericaIM GRANULOCYTES %2018-10-08 07:04:00* Test Item Value Reference Range Interpretation Comments IM GRANULOCYTES % (test code = IM GRANULOCYTES %) 0.4 0.0- 1.0 [facility] of AmericaNeutrophils # (Auto)2018-10-08 07:04:00* Test Item Value Reference Range Interpretation Comments Neutrophils # (Auto) (test code = 751-8) 6.3 2.1-6.9 [facility]als of AmericaLymphocytes # (Auto)2018-10-08 07:04:00* Test Item Value Reference Range Interpretation Comments Lymphocytes # (Auto) (test code = 19062-2) 1.7 1.0-3.2 [facility] AmericaMonocytes # (Auto)2018-10-08 07:04:00* Test Item Value Reference Range Interpretation Comments Monocytes # (Auto) (test code = 742-7) 0.8 0.2-0.8 [facility] AmericaEosinophils # (Auto)2018-10-08 07:04:00* Test Item Value Reference Range Interpretation Comments Eosinophils # (Auto) (test code = 711-2) 0.4 0.0-0.4 [facility] AmericaBasophils # (Auto)2018-10-08 07:04:00* Test Item Value Reference Range Interpretation Comments Basophils # (Auto) (test code = 704-7) 0.0 0.0-0.1 [facility]als of AmericaAbsolute Immature Granulocyte (auto 2018-10-08 07:04:00* Test Item Value Reference Range Interpretation Comments Absolute Immature Granulocyte (auto (brenda t code = Absolute Immature Granulocyte (auto) 0.04 0-0.1 [facility] of AmericaCT ABDOMEN/PELVIS Y7506-02-40 23:20:00 [facility] [address] [address] Patient Name: YAMILETH ROA MR #: [id number] : 1965 Age/Sex: 53/F Req #: [id number] Adm Physician: Ordered by: JEM VILLEGAS MD Report #: [id number] Location: ER Room/Bed: Procedure: 38 CT/CT ABDOMEN/PELVIS W Exam Date: Exam Time: REPORT STATUS: Signed CT Abdomen A nd Pelvis with Intravenous Contrast INDICATION: Abdominal pain nausea, vomi ting, constipation, left-sided epigastric pain SYNCOPE EPISODE Y TECHNIQUE: Thin collimation axial images obtained from the diaphragm to the le genia of the pubic symphysis following the uneventful administration of 100 cc of low osmolar, nonionic intravenous contrast. Dose reduction techniques us ed: Automated exposure control, adjustment of the mAs and/or kVp according to patient size, standardized low-dose protocol, and/or iterative reconstruction technique. RADIATION DOSE: Total DLP: 788.5 mGy*cm Est imated effective dose: (DLP x 0.015 x size factor) mSv CTDIvol has been r eviewed. It is below the limits set by the Radiation Protocol Committee (RPC). COMPARISON: None. ABDOMEN FINDINGS: Lung Bases: Clear. The vis ualized portions of the mediastinum are normal.. Liver: Normal attenuation. No evidence for mass. Gallbladder: Present and appears normal. No biliary ductal dilatation. Pancreas: Normal attenuation without mass or ductal dil atation. Spleen: Normal in size. No evidence of mass. Adrenal Glands: No evidence for mass. Kidneys: Right: Normal enhancement. No soft t issue mass. No hydronephrosis. Left: Normal enhancement. No soft tissue mass. A pixel sized calcification at the hilum of the upper pole is likely vas cular. No hydronephrosis. Lymph Nodes: No enlarged abdominal or periaortic lymph nodes. There are calcified subcentimeter lymph nodes in the small bowel mesentery. No enlarged mesenteric lymph nodes. Aorta: Normal in diame ter. The celiac artery and SMA are widely patent. SARAH is widely patent. P SONIYA FINDINGS: Bowel: Stomach: Normal. Small Bowel: Normal in calib er with normal wall thickness. Large Bowel: There is circumferential mural t hickening of the proximal ascending colon extending for approximately 6.3 cm i n length without mucosal hyperemia or pericolonic inflammation. Remainder of t he large bowel is collapsed. A few scattered diverticula are present without a ssociated inflammation. Appendix: Normal appendix. Bladder: Normal. The uterus is present and normal in morphology. No adnexal mass. Periton eum/retroperitoneum: No free fluid or fluid collection. Bones: Diffuse dege nerative changes of the spine. No focal osseous lesions. IMPRESSION: N onspecific circumferential mural thickening of the proximal ascending colon. N o CT evidence of acute colitis. Recommend further characterization with colono scopy. No evidence for bowel obstruction or inflammation. Normal appendix. Signed by: Dr. Mynor Gamez MD on 10/06/2018 11:39 PM Dictated By: MYNOR GAMEZ MD 622 Transcribed By: PAVEL on 10/06/182338 COPY TO: JAYCE VILLEGAS MD CT BRAIN [id number] 22:44:00 [address] [place] [address] Patient Name: YAMILETH ROA MR #: [id number] : 1965 Age/Sex: 53/F Req #: [id number] Adm Physician: Ordered by: JEM VILLEGAS MD Report #: [id number] Location: ER Room/Bed: Procedure: 0415-[address]/CT BRAIN WO Exam Date: 10/06/18 Exam Time: 220 9 REPORT STATUS: Signed History: Syncope Comparison studies:None Technique: Axial images were obtained f rom the skull base to the vertex. Coronal and sagittal images reconstructed fr om the axial data. Intravenous contrast: None Dose modulation, iterative rec onstruction, and/or weight based adjustment of the mA/kV was utilized to reduc e the radiation dose to as low as reasonably achievable. Findings: S calp/skull: No abnormalities. Extra-axial spaces: No masses. No flui d collections. Brain sulci: Mildly prominent. Ventricles: Mild compensato ry dilatation. No hydrocephalus. Parenchyma: Scattered small hypodensiti es in the supratentorial white matter are small vessel ischemic changes. Corti az-based hypodensity at the left cuneus gyrus. No masses, hemorrhage, acute o r chronic cortical vascular insults. Sellar/suprasellar region: No abnormal ities. Craniocervical junction: Patent foramen magnum. No Chiari one malforma tion. Incidental findings: Atherosclerotic calcifications in the carotid siphons and vertebral arteries. Impression: No acute abnormalities. Chronic findings: 1. Mild generalized volume loss. 2. Mild supratentori al white matter small vessel ischemic changes. 3. Small focal gliosis at the left cuneus gyrus. Signed by: DR Gian Heath M.D. on 10/06/2018 10 :48 PM Dictated By: GIAN NOLAN MD 47 Transcribed By: PAVEL on 10/06/182247 COPY TO: JEM VILLEAGS MD CHEST 2 [id number] 22:32:00 [address] [place] [address] Patient Name: YAMILETH ROA MR #: [id number] : 1965 Age/Sex: 53/F Req #: [id number] Adm Physician: Ordered by: JEM VILLEGAS MD Report #: [id number] Location: ER Room/Bed: Procedure: 0415-00 90 DX/CHEST 2 VIEWS Exam Date: 10/06/18 Exam Time: REPORT STATUS: Signed EXAMIN ATION: CHEST 2 VIEWS INDICATION: ABD PAIN [id number] Y COMPARISON: None FINDINGS: PA and lateral views TUBES and LINES: None. LUNGS: Lungs are well inflated. There are calcified tracheo bronchial tree. There is no evidence of pneumonia or pulmonary edema. PLE URA: No pleural effusion or pneumothorax. HEART AND MEDIASTINUM: The card iomediastinal silhouette is unremarkable.. BONES AND SOFT TISSUES: Mild d egenerative changes of the spine. No focal osseous lesions. Soft tissues are unremarkable. UPPER ABDOMEN: No free air under the diaphragm. IMPRES RONALD: No acute thoracic abnormality. Signed by: Dr. Mynor Gamez MD on 10/06/2018 10:33 PM Dictated By: MYNOR GAMEZ MD Electronica lly Signed By: MYNOR GAMEZ MD on 10/06/182232 Transcribed By: PAVEL on 10/06/182232 COPY TO: JEM VILLEGAS MD Creatine Kinase [id number] 22:17:00* Test Item Value Reference Range Interpretation Comments Creatine Kinase MB (test code = 90023-3) 1.30 0-5.0 [facility] AmericaTroponin O5797-99-79 22:17:00* Test Item Value Reference Range Interpretation Comments Troponin I (test code = VNX8081) < 0.001 0-0.300 [facility] AmericaCreatine Zzkbvo0298-85-36 22:07:00* Test Item Value Reference Range Interpretation Comments Creatine Kinase (test code = 2157-6) 83 29-168 [facility] AmericaAmylase Ddemq8775-48-70 22:07:00* Test Item Value Reference Range Interpretation Comments Amylase Level (test code = 1798-8) 47 25-125 [facility] AmericaLipase2019-04-15 22:07:00* Test Item Value Reference Range Interpretation Comments Lipase (test code = 3040-3) 17 8-78 [facility] AmericaUrine Utfot9992-73-87 21:53:00* Test Item Value Reference Range Interpretation Comments Urine Color (test code = 5778-6) YELLOW YELLOW [facility] AmericaUrine Avqubta1437-91-17 21:53:00* Test Item Value Reference Range Interpretation Comments Urine Clarity (test code = 57745-5) HAZY CLEAR [facility] AmericaUrine Specific Iappwdn4812-38-17 21:53:00 * Test Item Value Reference Range Interpretation Comments Urine Specific Penelope (test code = 5811-5) 1.025 1.010-1.02 5 [facility] AmericaUrine fT8793-99-88 21:53:00* Test Item Value Reference Range Interpretation Comments Urine pH (test code = 33288-0) 6 5-7 [facility] AmericaUrine Leukocyte Wrulmtvg4146-86-16 21:53:00* Test Item Value Reference Range Interpretation Comments Urine Leukocyte Esterase (test code = 5799-2) NEGATIVE NEGATIVE [facility] AmericaUrine Yhnqfrq7178-91-79 21:53:00* Test Item Value Reference Range Interpretation Comments Urine Nitrite (test code = 81037-8) NEGATIVE NEGATIVE [facility] AmericaUrine Zyqwija4143-93-93 21:53:00* Test Item Value Reference Range Interpretation Comments Urine Protein (test code = 5804-0) NEGATIVE NEGATIVE [facility] Glucose (UA)2018-10-06 21:53:00* Test Item Value Reference Range Interpretation Comments Urine Glucose (UA) (test code = 2349-9) NEGATIVE NEGATIVE [facility] Ptbjqel6614-39-81 21:53:00* Test Item Value Reference Range Interpretation Comments Urine Ketones (test code = 05148-2) TRACE NEGATIVE [facility] Kkqgvrbynouy9672-88-05 21:53:00* Test Item Value Reference Range Interpretation Comments Urine Urobilinogen (test code = 83485-0) 0.2 0.2-1 [facility] Nhpoenbxz8675-32-64 21:53:00* Test Item Value Reference Range Interpretation Comments Urine Bilirubin (test code = 1978-6) NEGATIVE NEGATIVE [facility] Qxpqf2215-56-18 21:53:00* Test Item Value Reference Range Interpretation Comments Urine Blood (test code = 52886-7) NEGATIVE NEGATIVE [facility] AmericaUrine ZOX0041-24-28 21:53:00* Test Item Value Reference Range Interpretation Comments Urine WBC (test code = 5821-4) 6-10 0-5 [facility] HQP9161-49-37 21:53:00* Test Item Value Reference Range Interpretation Comments Urine RBC (test code = 01509-8) 0-5 0-5 [facility] Gtkdrwrg6530-64-68 21:53:00* Test Item Value Reference Range Interpretation Comments Urine Bacteria (test code = 21021-2) MODERATE NONE [facility] Epithelial Mlmlp7980-69-90 21:53:00 * Test Item Value Reference Range Interpretation Comments Urine Epithelial Cells (test code = 76477-0) MODERATE NONE [facility] Amorphous Pygykvua4473-03-58 21:53:00* Test Item Value Reference Range Interpretation Comments Urine Amorphous Sediment (test code = 8246-1) FEW FEW [facility] AmericaUrine Hyaline Wxkxd9434-69-68 21:53:00* Test Item Value Reference Range Interpretation Comments Urine Hyaline Casts (test code = 59627-7) 2-5 0-1 [facility] AmericaUrine Katdf5212-88-79 21:53:00* Test Item Value Reference Range Interpretation Comments Urine Mucus (test code = 8247-9) FEW RARE [facility] AmericaTriglycerides Fowut9976-78-39 08:12:00* Test Item Value Reference Range Interpretation Comments Triglycerides Level (test code = 2571-8) 106 0-149 [facility] AmericaCholesterol Tacdy8759-23-23 08:12:00* Test Item Value Reference Range Interpretation Comments Cholesterol Level (test code = 2093-3) 152 0-199 Less than 200 mg/dL Low Spxw335 - 239 mg/dL Borderline Hobn213 m g/dl and greater High Risk [facility] AmericaLDL [id number] 08:12:00* Test Item Value Reference Range Interpretation Comments LDL Cholesterol (test code = 2089-1) 88 60-130 [facility] AmericaHDL [id number] 08:12:00* Test Item Value Reference Range Interpretation Comments HDL Cholesterol (test code = 2085-9) 43 40-60 [facility] AmericaCholesterol/HDL [id number] 08:12:00 * Test Item Value Reference Range Interpretation Comments Cholesterol/HDL Ratio (test code = 9830-1) 3.5 3.0-3.6 [facility] AmericaHemoglobin A1c [id number] 07:51:00 * Test Item Value Reference Range Interpretation Comments Hemoglobin A1c Percent (test code = Hemoglobin A1c Percent) 5.7 4.0-7.0 [facility] AmericaVitamin D 1,77-Qljxhclix4866-29-01 10:33:00* Test Item Value Reference Range Interpretation Comments Vitamin D 1,25-Dihydroxy (test code = 1649-3) 50.6 19.9-79. 3 Performed at: [address] [id number] Merchandising Representative: Be Barron MD, Phone: [phone] [facility] PasoFree [id number] 08:15:00* Test Item Value Reference Range Interpretation Comments Free Thyroxine (test code = 3024-7) 1.08 0.9-1.8 [facility] AmericaThyroid Stimulating Hormone (TSH) 2018-04-22 08:15:00* Test Item Value Reference Range Interpretation Comments Thyroid Stimulating Hormone (TSH) (test code = 04982-1) 0.804 0.350-4.940 [facility] AmericaMAMMOGRAPHY DIGITAL SCR [id number] 12:34:00 [facility] [address] [address] Patient Name: YAMILETH ROA MR #: [id number] : 1965 Age/Sex: 53/F Req #: [id number] Adm Physician: Ordered by: KHANH HARRINGTON MD Report #: [id number] Location: MAMMO Room/Bed: Procedure: 1010 -0006 MG/MAMMOGRAPHY DIGITAL SCR BILAT Exam Date: 04/02/18 Exam Time: 1206 REPORT STATU S: Signed #[id number] - MGSCRBIL #BILATERAL DIGITAL SCREENING MAMMOGR AM WITH CAD: 04/02/2018 CLINICAL: Routine screening. Comparison is made to exams dated: 01/20/2015 mammogram, 10/19/2013 mammogram and 03/06/2012 mammogr am - [facility]. Current study contains 4 films. There are scattered fibroglandular elements in both breasts. Current study was also e valuated with a Computer Aided Detection (CAD) system. There are benign vasc ular calcifications and calcifications in both breasts. There also are benign nodules in the right breast. Additionally there is a biopsy clip in the right breast. No significant masses, calcifications, or other findings are seen in either breast. There has been no significant interval change. IMPRESSI ON: BENIGN There is no mammographic evidence of malignancy. A 1 year screenin g mammogram is recommended. The patient will be notified by letter of the [facility] ults. Wu thompson/saran:04/16/2018 15:49:37 [employer]: Yadira CASPER(R)(M), [facility] letter sent: Compared to Prior B9 Mammogram BI-RADS: 2 Benign Dictated By: WU FAGAN DO [id number] COPY TO: KHANH DAVIDSON MD
[2019-11-13] MEDS ORDERED: HYDROCODONE/APAP 7.5MG-325MG 1 EA TAB PO PRN (07:30)
[2019-11-13] MEDS ORDERED: KETOROLAC TROMETHAMINE 60 MG/2 ML VIAL IM ONE (07:30)
--- NOTE | 2019-11-13 09:07 | Diagnostic Imaging Report ---
Exam: Right knee 3 views Clinical History: Status post fall Findings: There is no evidence of acute fracture or malalignment. The articular joints are well-preserved. The soft tissue is unremarkable. Impression: No radiographic evidence of acute osseous injury. Signed by: Dr. Pedro Flores MD on 11/13/2019 9:04 AM
--- NOTE | 2019-11-13 10:03 | Emergency Department Note ---
History of Present Illnes History of Present Illness Chief Complaint: General Medicine Complaints History of Present Illness This is a 54 year old female arrived for right knee pain- fell yesterday. Pt states she is able to walk but with mild pain. Pt denies any numbness/weakness. Historian: Patient Arrival Mode: Car Tea Taster Required: No Onset (how long ago): hour(s) Radiation: extremity Severity: mild Onset quality: sudden Duration (how long): hour(s) Timing of current episode: intermittent Progression: waxing and waning Chronicity: new Context: trauma/injury Relieving factors: immobilization Exacerbating factors: movement Associated symptoms: denies other symptoms Treatments prior to arrival: NSAID Past Medical/Family History Physician Review I have reviewed the patient's past medical and family history. Any updates have been documented here. Past Medical History Recent Fever: No Clinical Suspicion of Infectio: No New/Unexplained Change in Ment: No Past Medical History: Hypertension Other Medical History: BORDERLINE DIABETIC PER PATIENT Past Surgical History: Social History Smoking Cessation: Never Smoker Counseling Performed: Yes Alcohol Use: Social Any Illegal Drug Use: No TB Exposure/Symptoms: No Physically hurt or threatened: No Family History Family history of heart diseas: No Other Last Tetanus: UTD Any Pre-Existing Lines (PICC,: No Is patient up to date on immun: Yes Last Flu: 2019 Last Pneumovax: UNKNOWN Review of Systems Review of Systems Constitutional: no symptoms EENTM: no symptoms Cardiovascular: no symptoms Respiratory: no symptoms Gastrointestinal: no symptoms Genitourinary: no symptoms Musculoskeletal: joint pain Neurological: no symptoms Psychological: no symptoms Endocrine: no symptoms Hematological/Lymphatic: no symptoms Review of other systems All other systems reviewed and negative. Physical Exam Related Data Allergies: Coded Allergies: No Known Allergies (Unverified , 10/06/18) Triage Vital Signs Vital Signs Date Time Temp Pulse Resp B/P (MAP) Pulse Ox O2 Delivery O2 Flow Rate FiO2 11/13/19 07:22 97.5 92 18 207/92 97 Vital signs reviewed: Yes Physical Exam CONSTITUTIONAL Constitutional: well-developed, well-nourished HENT HENT: normocephalic, atraumatic, oropharynx clear/moist, nose normal HENT L/R: left ext ear normal, right ext ear normal EYES Eyes: PERRL, conjunctivae normal NECK Neck: ROM normal PULMONARY Pulmonary: effort normal, breath sounds normal CARDIOVASCULAR Cardiovascular: regular rhythm, heart sounds normal, capillary refill normal, normal rate GASTROINTESTINAL Abdominal: soft, nontender, bowel sounds normal GENITOURINARY Genitourinary: exam deferred SKIN Skin: warm, dry MUSCULOSKELETAL Musculoskeletal: ROM normal, tenderness, other (+tenderness over proximal tibia, no crepitus, no deformity, no skin break ) NEUROLOGICAL Neurological: alert, oriented x 3, no gross motor or sensory deficits PSYCHOLOGICAL Psychological: mood/affect normal, judgement normal Results Imaging Imaging results reviewed: Yes Impressions Findings: There is no evidence of acute fracture or malalignment. The articular joints are well-preserved. The soft tissue is unremarkable. Impression: No radiographic evidence of acute osseous injury. Critical Care Time Subsequent provider I assumed direction of critical care for this patient from another provider of my specialty. Assessment & Plan Assessment & Plan Final Impression: (1) Knee pain (2) Contusion Assessment & Plan knee x-ray knee immobilizer out pt ortho referral- possible outpt MRI Last Vital Signs Date Time Temp Pulse Resp B/P (MAP) Pulse Ox O2 Delivery O2 Flow Rate FiO2 11/13/19 09:33 71 18 139/64 99 11/13/19 07:22 97.5 Home Meds Reported Medications Metronidazole (FLAGYL) 500 Mg Tablet, PO Q8H 10/09/18 Levofloxacin (LEVAQUIN) 500 Mg Tablet, 500 MG PO DAILY, TAB 10/09/18 Metformin Hcl (METFORMIN HCL ER) 500 Mg Tab.er.24h, 1 TAB PO DAILY 10/06/18 Losartan/Hydrochlorothiazide (LOSARTAN-HCTZ 50-12.5 MG TAB) 1 Each Tablet, 1 TAB PO DAILY 10/06/18 Amlodipine Besylate (AMLODIPINE BESYLATE) 10 Mg Tablet, 10 MG PO DAILY 10/06/18 Medications in the ED Acetaminophen/ Hydrocodone Bitart 1 ea ONCE PRN PO MODERATE PAIN (4-6) Last administered on 11/13/19at 07:50; Admin Dose 1 EA; Start 11/13/19 at 07:30; Stop 11/20/19 at 07:29 Ketorolac Tromethamine 60 mg ONCE ONCE IM Last administered on 11/13/19at 07:50; Admin Dose 60 MG; Start 11/13/19 at 07:30; Stop 5/22/20 at 07:36; Status DC LUCERO DE LOS SANTOS DO November 13, 2019 10:03
[2019-11-13] MEDS ORDERED: ULTRAM50 MG PO (10:17)
[2019-11-13 10:43] VITALS: BP 119/80
== END 2019-11-13 10:46 | disposition home or self-care (01) ==
LOC: ER 07:11
DX: M25.561 Pain in right knee (principal); S80.01XA Contusion of right knee, initial encounter; W18.30XA Fall on same level, unspecified, initial encounter; I10 Essential (primary) hypertension
CPT/HCPCS: 73562; 99283; J1885

== ENCOUNTER → 2019-11-20 | Outpatient (CLI) | payer BC ==
[~2019-11-20] MED LIST changes: +IOPAMIDOL 370 MG/ML 200 ML INFUS..BTL INJ ONE; +SODIUM CHLORIDE 0.9% 50ML 50 ML ONE; +ULTRAM50 MG PO
[2019-11-20 11:11] LABS: BLOOD UREA NITROGEN 19 mg/dL (7-26); BUN/CREATININE RATIO 31 (6-25); CREATININE, SERUM 0.62 mg/dL (0.57-1.11); EST GLOMERULAR FILTRATION RATE > 60 ML/MIN (60-)
--- NOTE | 2019-11-20 16:08 | Diagnostic Imaging Report ---
Examination:CT SOFT TISSUE NECK WITH CONTRAST History: Right neck swelling. Comparison studies: None Technique: Axial images from the skull base to the thoracic inlet Coronal and sagittal reformatted images. Dose modulation, iterative reconstruction, and/or weight based adjustment of the mA/kV was utilized to reduce the radiation dose to as low as reasonably achievable. Intravenous contrast: 100mL of Isovue-370. Findings: Soft tissues: No abnormalities. Aerodigestive tract: No abnormality. Lymph nodes: No radiographically significant adenopathy. Vessels: Arteries and veins are patent. Thyroid gland: Normal in size and homogeneous. Submandibular glands: Normal in size and homogeneous. Parotid glands: Normal in size and homogeneous. Orbits: No abnormalities. Paranasal sinuses: Clear. Temporal bones: No abnormalities. Skull base and facial bones: Dental caries of tooth #2 (right second molar tooth. Cervical spine: No disc bulge or herniation or foraminal or canal stenosis. Visualized lung apices: No abnormalities. IMPRESSION: 1. No lesion of the right neck soft tissues. 2. Dental caries of tooth #2. Signed by: Dr. Lisa Moreno M.D. on 11/20/2019 4:05 PM
== END ==
LOC: CT 10:02
PROVIDERS: ATTEND Internal Medicine
DX: R59.0 Localized enlarged lymph nodes (principal)
CPT/HCPCS: 36415; 70491; 82565; 84520; Q9967

== ENCOUNTER → 2020-04-13 | Outpatient (CLI) | payer BC ==
[~2020-04-13] MED LIST changes: -IOPAMIDOL 370 MG/ML 200 ML INFUS..BTL INJ ONE; -SODIUM CHLORIDE 0.9% 50ML 50 ML ONE
[2020-04-13 07:10] LABS: BASOPHILS % 0.4 % (0.0-1.0); EOSINOPHILS # (AUTO) 0.5 (0.0-0.4); HEMATOCRIT 38.4 % (34.2-44.1); HEMOGLOBIN 12.7 g/dL (12.0-16.0); LYMPHOCYTES # (AUTO) 2.6 (1.0-3.2); LYMPHOCYTES % 27.6 % (18.0-39.1); MEAN CORPUSCULAR HEMOGLOBIN 30.5 pg (28-32); MEAN CORPUSCULAR HGB CONC 33.1 g/dL (31-35); MEAN CORPUSCULAR VOLUME 92.3 fL (81-99); MONOCYTES # (AUTO) 0.7 (0.2-0.8); NEUTROPHILS # (AUTO) 5.4 (2.1-6.9); NEUTROPHILS % 58.8 % (38.7-80.0); PLATELET COUNT 299 x10e3/uL (140-360); RED BLOOD COUNT 4.16 x10e6/uL (3.6-5.1)
[2020-04-13 07:48] LABS: ALANINE AMINOTRANSFERASE 27 IU/L (0-55); ALBUMIN 3.7 g/dL (3.5-5.0); ALBUMIN/GLOBULIN RATIO 0.9 (0.8-2.0); ALKALINE PHOSPHATASE 107 IU/L (40-150); ANION GAP 13.8 mmol/L (8-16); BLOOD UREA NITROGEN 23 mg/dL (7-26); BUN/CREATININE RATIO 37 (6-25); CALCIUM 9.2 mg/dL (8.4-10.2); CARBON DIOXIDE 24 mmol/L (22-29); CHLORIDE 107 mmol/L (98-107); CHOL/HDL RATIO 3.5 (3.0-3.6); CHOLESTEROL 181 MD/DL (0-199); CREATININE, SERUM 0.63 mg/dL (0.57-1.11); EST GLOMERULAR FILTRATION RATE > 60 ML/MIN (60-); GLUCOSE 102 mg/dL (74-118); HDL CHOLESTEROL 51 MG/DL (40-60); LDL CHOLESTEROL 114 MG/DL (60-130); POTASSIUM 3.8 mmol/L (3.5-5.1); SODIUM 141 mmol/L (136-145); TRIGLYCERIDES 82 MG/DL (0-149)
[2020-04-13 08:02] LABS: BILIRUBIN,URINE NEGATIVE (NEGATIVE); CLARITY,URINE CLEAR (CLEAR); COLOR,URINE YELLOW (YELLOW); KETONES,URINE NEGATIVE (NEGATIVE); LEUKOCYTE ESTERASE ,URINE NEGATIVE (NEGATIVE); NITRITE,URINE NEGATIVE (NEGATIVE); PROTEIN,URINE DIPSTICK NEGATIVE (NEGATIVE); URINE UROBILINOGEN 0.2 mg/dL (0.2 - 1)
[2020-04-13 08:07] LABS: THYROID STIMULATING HORMONE 1.565 uIU/mL (0.350-4.940)
== END ==
LOC: LAB 06:39
PROVIDERS: ATTEND Internal Medicine
DX: Z00.00 Encounter for general adult medical examination without abnormal findings (principal); E11.8 Type 2 diabetes mellitus with unspecified complications; I10 Essential (primary) hypertension; E78.5 Hyperlipidemia, unspecified; M89.9 Disorder of bone, unspecified
CPT/HCPCS: 36415; 80053; 80061; 81003; 82044; 82306; 82570; 83036; 84443; 85025

== ENCOUNTER → 2020-06-21 | Outpatient (CLI) | payer OTHER | LOC: VACCPMC 13:45 | DX: Z23 Encounter for immunization (principal); Z20.828 Contact with and (suspected) exposure to other viral communicable diseases ==

== ENCOUNTER → 2020-07-26 | Outpatient (CLI) | payer OTHER ==
[~2020-07-26] MED LIST changes: +COVID-19 VACC, MRNA(MODERNA)/PF 100 MCG/0.5 ML VIAL IM ONE
== END | DRG 951 ==
LOC: VACCPMC 09:02
DX: Z23 Encounter for immunization (principal); Z20.822 Contact with and (suspected) exposure to COVID-19
CPT/HCPCS: 0012A; 91301

== ENCOUNTER → 2021-09-13 | Outpatient (CLI) | payer BC ==
[~2021-09-13] MED LIST changes: -COVID-19 VACC, MRNA(MODERNA)/PF 100 MCG/0.5 ML VIAL IM ONE
== END ==
LOC: MAMMO 15:47
PROVIDERS: ATTEND Internal Medicine
DX: Z12.31 Encounter for screening mammogram for malignant neoplasm of breast (principal)
CPT/HCPCS: 77067

== ENCOUNTER → 2022-10-08 | Outpatient (CLI) | payer BC | LOC: MAMMO 08:56 | PROVIDERS: ATTEND Internal Medicine | DX: Z12.31 Encounter for screening mammogram for malignant neoplasm of breast (principal) | CPT/HCPCS: 77067 ==

== ENCOUNTER 2024-05-15 07:33 | Emergency (ER) | payer BC ==
[~2024-05-15] VITALS: Ht 147.3 cm; Wt 87.1 kg
[~2024-05-15 07:33] MED LIST changes: +LISINOPRIL10 MG PO; +PROTONIX20 MG PO; +VITAMIN D250 MCG PO
[2024-05-15 07:41] VITALS: TEMP 98.3
[2024-05-15] MEDS ORDERED: LABETALOL HCL 5 MG/ML 20ML VIAL IV STA (08:34)
[2024-05-15 09:46] LABS: BASOPHILS % 0.4 % (0.0-1.0); EOSINOPHILS # (AUTO) 0.1 (0.0-0.4); EOSINOPHILS % 1.3 % (0.0-6.0); HEMATOCRIT 48.4 % (34.2-44.1); HEMOGLOBIN 15.7 g/dL (12.0-16.0); LYMPHOCYTES # (AUTO) 2.7 (1.0-3.2); LYMPHOCYTES % 25.9 % (18.0-39.1); MEAN CORPUSCULAR HEMOGLOBIN 30.5 pg (28-32); MEAN CORPUSCULAR HGB CONC 32.4 g/dL (31-35); MEAN CORPUSCULAR VOLUME 94.2 fL (81-99); MONOCYTES # (AUTO) 0.8 (0.2-0.8); NEUTROPHILS # (AUTO) 6.8 (2.1-6.9); NEUTROPHILS % 64.2 % (38.7-80.0); PLATELET COUNT 338 x10e3/uL (140-360); RED BLOOD COUNT 5.14 x10e6/uL (3.6-5.1); WHITE BLOOD COUNT 10.52 x10e3/uL (4.8-10.8)
[2024-05-15 09:58] LABS: ALBUMIN/GLOBULIN RATIO 0.9 (0.8-2.0); ANION GAP 16.6 mmol/L (8-16); CALCIUM 10.2 mg/dL (8.4-10.2); CREATININE, SERUM 0.72 mg/dL (0.57-1.11); POTASSIUM 3.6 mmol/L (3.5-5.1); TOTAL PROTEIN 8.7 g/dL (6.5-8.1)
[2024-05-15 11:11] VITALS: PULSE 74; RESP 16; O2SAT 96
[2024-05-15 11:19] VITALS: BP 158/77; PULSE 74
[2024-05-15] MEDS: LABETALOL HCL 5 MG/ML 20ML VIAL IV STA (11:19)
[2024-05-15] MEDS ORDERED: CLONIDINE HCL0.1 MG PO (11:52)
== END 2024-05-15 12:27 | disposition home or self-care (01) ==
LOC: ER 08:08
DX: I16.0 Hypertensive urgency (principal); H53.9 Unspecified visual disturbance; I10 Essential (primary) hypertension
CPT/HCPCS: 36415; 70450; 80053; 84484; 85025; 93005; 99284